=== PATIENT | male | born 1980 | race Hispanic/Latino ===

== ENCOUNTER 2016-12-03 07:51 | Day surgery (SDC) | payer OTHER ==
[~2016-12-03] VITALS: Ht 170.2 cm; Wt 95.0 kg
[~2016-12-03 07:51] MED LIST: 0.9% Sodium Chloride 1,000 ML IV PRN; AMOX-366 PO; EPIN0.3P2 IJ; IBUP800T28 PO; METR500T19 PO; OXYC1TAB24 PO; OXYC5TAB72 PO; Sodium Chloride LOK Flush 10 mL Syringe IV PRN; fentaNYL-PF 50 mCg/mL 2 mL Inj IVPUSH PRN
[2016-12-03 08:13] VITALS: BP 145/97; PULSE 70; RESP 16; O2SAT 97
--- NOTE | 2016-12-03 09:01 | PCM.ENDCOL ---
Colonoscopy Date of Service: Dec 03, 2016 Physician Topher Watts MD Pre Procedure Diagnosis: History of diverticulitis Post Procedure Dx & Findings: Polyp hemorrhoids diverticulitis Procedure Colonoscopy Prep adequate Withdrawal time 8 minutes After unremarkable rectal examination the Olympus video colonoscope was inserted patient's anal canal and was advanced to cecum. Landmarks were identified including the ileocecal valve and appendiceal orifice. Scope was withdrawn systematically. Visualized colonic mucosa showed healthy shiny mucosa with normal healthy-appearing vasculature. In the transverse colon, there was a 2 mm polyp which was removed completely using cold snare. In the rectum, there was a 1 mm polyp was removed completely with using cold snare. In the sigmoid colon there were also several small diverticuli. In the rectum retroflexion was done which showed hemorrhoids. Anal canal was inspected carefully on the way out and hemorrhoids noted. Impression Polyp 2 status post complete removal Diverticuli Hemorrhoids Recommendation Repeat colonoscopy 5 years Diverticular diet Presedation Assessment Risks and Benefits Informed consent was obtained from the patient after all risks and benefits including but not limited to drug reaction, infection, pain, bleeding, perforation, as well as alternatives were discussed. Patient monitoring Continuous pulse oximetry, cardiac monitoring, blood pressure monitoring, IV access, and oxygen at 2L per nasal cannula. Periprocedural Fentanyl: Fentanyl 150mcg Incrementally Midazolam: Midazolam 7mg Incrementally Complications There were no periprocedural complications identified. Post Procedure Plan Post Procedure Recommendations 1. Restrict activities today. 2. Resume normal activities in the morning. 3. Resume medications. 4. Patient informed of normal post procedure side effects as bloating, drowsiness, blood streaking in the stool. 5. average risk CRCS. If colon polyps come back as: -Hyperplastic- can repeat colonoscopy in 10 years -Tubular adenoma- repeat colonoscopy in 5 years -Tubulovillous/villous adenoma- repeat colonoscopy in 3 years -If any dysplasia- return to clinic as soon as possible 6. Please don't hesitate to call me with any questions. Topher Watts MD Dec 03, 2016 09:01
[2016-12-03 09:05] VITALS: BP 120/78; PULSE 70; RESP 17; O2SAT 94
[2016-12-03 09:14] VITALS: BP 118/71; PULSE 73; RESP 15; O2SAT 97
[2016-12-03 09:24] VITALS: BP 131/77; PULSE 79; RESP 17; O2SAT 98
--- NOTE | 2016-12-04 12:51 | PATH ---
SURGICAL PATHOLOGY Attending Physician:Topher Watts M.D. CASE STATUS: Signed Out PATIENT NAME: ILDEFONSO GRAF PID: [id number] : 1980 DATE COLLECTED:12/03/2016 16:55 SPECIMEN: 1: Colon, Biopsy 2: Rectum, Biopsy CLINICAL HISTORY: 1). TRANSVERSE POLYP X1 2). RECTAL POLYP X1 FINAL DIAGNOSIS: 1.TRANSVERSE COLON POLYP: HYPERPLASTIC POLYP. 2.RECTAL POLYP: HYPERPLASTIC POLYP. ICD10 CODE D12.6 GROSS DESCRIPTION: The specimen is received in two formalin filled containers labeled with the patient's name. 1). The specimen is sublabeled "transverse polyp x1" and consists of a 0.6 x 0.4 x 0.2 CM portion of tissue which is entirely submitted in cassette 1A. 2). The specimen is sublabeled "rectal polyp x1" and consists of a 0.2 x 0.2 x 0.2 CM portion of tissue which is entirely submitted in cassette 2A. 12/03/2016 DAC MICRO DESCRIPTION: See diagnosis. ICD-9 CODES: CPT CODES: 1: 55663 2: 22134 Electronically Signed Out Spencer Ramos MD [facility] [address], [place] [address] Technical component performed at [facility], [address] [place] [address] Ave[address], [place], [address]
== END 2016-12-03 23:59 | disposition home or self-care (01) ==
LOC: END 07:51
PROVIDERS: ATTEND Internal Medicine
DX: K63.5 Polyp of colon (principal); K62.1 Rectal polyp; K57.30 Diverticulosis of large intestine without perforation or abscess without bleeding; K64.8 Other hemorrhoids; J45.909 Unspecified asthma, uncomplicated; F17.210 Nicotine dependence, cigarettes, uncomplicated
CPT/HCPCS: 45385; 88305; G0500; J2250; J3010; J7030